=== PATIENT | female | born 1985 | race American Indian/Alaskan Native ===

== ENCOUNTER 2018-10-17 20:15 | Emergency (ER) | payer SELFPAY ==
[2018-10-17 23:09] LABS: Hematocrit 41.9 % (30.3-42.9); Hemoglobin 14.1 gm/dl (10.1-14.3); Mean Corpuscular HGB Conc 34 % (30-34); Mean Corpuscular Volume 92 fl (79-97); Platelet Count 274 K/mm3 (140-440); Red Blood Count 4.54 M/mm3 (3.65-5.03); Red Cell Distribution Width 13.1 % (13.2-15.2)
[2018-10-17 23:20] VITALS: BP 140/68
[2018-10-17 23:26] LABS: BUN/Creatinine Ratio 12; Blood Urea Nitrogen 12 mg/dL (7-17); Calcium 9.3 mg/dL (8.4-10.2); Hemolysis Index 6
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
--- NOTE | 2018-10-18 03:48 | Ultrasound Report ---
FINAL REPORT EXAM: US EXTREMITY NONVASCULAR LT HISTORY: LLE swelling and pain TECHNIQUE: Limited imaging was obtained of the lateral calf area of the left leg. FINDINGS: There is no evidence of intramuscular hematoma mass or obvious inflammatory process. The soft tissues otherwise are unremarkable. IMPRESSION: No significant findings.
== END 2018-10-18 04:10 | disposition home or self-care (01) ==
LOC: ED 20:15
DX: S80.12XA Contusion of left lower leg, initial encounter (principal); F41.9 Anxiety disorder, unspecified; Z87.891 Personal history of nicotine dependence; W07.XXXA Fall from chair, initial encounter; Y93.89 Activity, other specified; Y92.89 Other specified places as the place of occurrence of the external cause; Y99.8 Other external cause status
CPT/HCPCS: 36415; 80048; 82550; 83735; 84702; 85027; 99284